=== PATIENT | female | born 1945 | race Caucasian/White ===

== ENCOUNTER 2022-12-07 17:52 | Emergency (ER) | payer MEDICARE, SELFPAY ==
[2022-12-07 18:34] VITALS: BP 170/75; PULSE 82; RESP 14; TEMP 36.8; O2SAT 99; BMI 29.0
[2022-12-07] MEDS: TET,DIPH,PERTUSS(ACELL),VAC/PF 0.5 ML SYRINGE IM (21:16)
--- NOTE | 2022-12-07 21:43 | ED.HEATRA ---
HPI - Head Injury General Chief complaint: Head Injury Stated complaint: Head lac after fall, R knee pain Time Seen by Provider: 12/07/22 21:42 Source: patient Mode of arrival: Ambulatory History of Present Illness HPI Narrative: Patient is a 77-year-old female who is here evaluation of injuries that she sustained after falling at home. She stated that she tripped over the cord of the vacuum immersion metalcleaner and hit her head on the corner of a piece of furniture. She did sustain a laceration to the eyebrow right above the right eye. She also bruised her right knee. She did not lose consciousness. Not on anticoagulation. No other injuries from the event. She is no neck pain. Related Data Allergies Allergy/AdvReac Type Severity Reaction Status Date / Time nitrofurantoin Allergy Verified 12/07/22 18:39 [From Macrobid] Review of Systems Eyes Eyes: Reports system reviewed and no additional complaints, except as documented ENT Ears, Nose, Mouth, and Throat: Reports system reviewed and no additional complaints, except as documented Integumentary/Breasts Skin/Breast: Reports system reviewed and no additional complaints, except as documented Neurologic Neurologic: Reports system reviewed and no additional complaints, except as documented Hematologic/Lymphatic On Anticoagulants: No Patient History Social History Smoking Status: Never smoker Smoking Status: Never smoker alcohol intake frequency: 0-2 drinks per day Substance Use Type: does not use Exam Initial Vital Signs Initial Vital Signs: Vital Signs Temperature 98.2 F 12/07/22 18:34 Pulse Rate 82 12/07/22 18:34 Respiratory Rate 14 12/07/22 18:34 Blood Pressure 170/75 H 12/07/22 18:34 Pulse Oximetry 99 12/07/22 18:34 Oxygen Delivery Method Room Air 12/07/22 18:34 Const General: cooperative and comfortable HENIN Head: laceration Back/Spine/Pelvis Cervical Spine: No cervical spinal tenderness Skin Other: 3 cm laceration to the eyebrow above the right eye. Patient also has bruising to the right knee Neuro General: patient alert, patient awake and moves all extremities Extrem Other: Bruising to the right knee but has full range motion and is ambulatory. Procedures Laceration Repair Laceration 1: Site: face (Above right eyebrow) Side (If applicable): right Size (cm): 3 Description: linear Depth: simple, single layer Local Anesthetic: lidocaine 1% and with epi Amount of anesthesia used (mL): 3 Pre-repair: wound explored and deep structures intact Skin layer closed with: nylon Skin layer suture size: 4-0 Number of sutures: 8 Technique: simple, interrupted Scores GCS [place] coma scale eye opening: Spontaneous [place] coma scale verbal response: Orientated [place] coma scale motor response: Obey commands [place] coma scale total score: 15 Nexus Score for C-Spine Focal Neurologic deficit present: No Midline spinal tenderness present: No Altered level of conciousness present: No Intoxication present: No Distracting Injury Present: No Nexus Criteria for C-spine: 0 Course Orders Ordered: Discontinued Medications Bacitracin (Bacitracin Oint 0.9 Gm Pckt) 1 applic TOP NOW ONE Stop: 12/07/22 22:13 Last Admin: 12/07/22 22:40 Dose: 1 applic Documented By: JODI Diphtheria/Tetanus/Acell Pertussis (Tet,Diph,Pertuss(Acell),Vac/Pf 0.5 Ml Syringe) 0.5 ml IM .ONCE ONE Stop: 12/07/22 18:39 Last Admin: 12/07/22 21:16 Dose: 0.5 ml Documented By: JODI Vital Signs Vital signs: Vital Signs - 8 hr 12/07/22 22:46 Temperature 98 F Pulse Rate 66 Respiratory Rate 16 Blood Pressure 134/78 Pulse Oximetry 98 Oxygen Delivery Method Room Air MDM - Head Injury MDM Narrative Medical decision making narrative: Laceration above right eye was closed as described above. Patient does have a contusion to her right knee but has full range of motion in his ambulatory. No indication for x-rays. Cervical spine is cleared by nexus criteria. No other injuries during the event. This was a mechanical fall. She was given care instructions and return precautions. She expressed understanding and agreement. Discharge Plan Departure Patient Disposition: Home Clinical Impression: Laceration Instructions: DI for Laceration Repair -- Simple Activity Restrictions/Additional Instructions: The stitches that were placed today are not absorbable. They do need to come out in the next 7-10 days. You can go to either the walk-in clinic or your primary doctor for this. You can put topical antibiotic ointment over the area. You can shower like normal. I would not be surprised if you develop a black eye over the next day. Return to the emergency department for worsening symptoms. Stand Alone Forms: Patient Portal/API
[2022-12-07] MEDS: BACITRACIN OINT 0.9 GM PCKT 1 APPLIC TOP (22:40)
[2022-12-07 22:46] VITALS: BP 134/78; PULSE 66; RESP 16; TEMP 36.6; O2SAT 98
== END 2022-12-07 22:47 | disposition home or self-care (01) ==
PROVIDERS: Emergency Provider Emergency Medicine
DX: S01.111A Laceration without foreign body of right eyelid and periocular area, initial encounter (principal); W01.190A Fall on same level from slipping, tripping and stumbling with subsequent striking against furniture, initial encounter; Z23 Encounter for immunization
CPT/HCPCS: 12013; 90471; 99283; 90715

== ENCOUNTER → 2023-02-04 10:30 | Outpatient (CLI) | payer MEDICARE, SELFPAY ==
[2023-02-04 12:06] LABS: Add Manual Diff / Slide Review NO; Basophils Absolute Auto 100 /uL (0-100); Eosinophils Absolute Auto 100 /uL (0-450); Eosinophils Percent Auto 1.7 % (2-4); Hematocrit 35.5 % (36-46); Hemoglobin 12.2 g/dL (12.0-16.0); Lymphocytes Absolute Auto 1000 /uL (1100-4500); Lymphocytes Percent Auto 17.1 % (25-40); Mean Corpuscular HGB Conc 34.4 % (30-36); Mean Corpuscular Hemoglobin 33.7 PG (26-34); Monocytes Absolute Auto 400 /uL (0-900); Monocytes Percent Auto 6.7 % (3-14); Neutrophils Absolute Auto 4200 /uL (1500-7000); Neutrophils Percent Auto 73.5 % (50-75); Platelet Count 213 X10^3/uL (150-400); Red Blood Cell Count 3.62 X10^6/uL (4.0-5.2); Red Cell Distribution Width 12.3 % (11.6-14.8); White Blood Cell Count 5.7 X10^3/uL (4.5-11.0)
[2023-02-04 12:29] LABS: Alanine Aminotransferase 27 IU/L (<35); Albumin 4.4 g/dL (3.5-5.0); Albumin Globulin Ratio 1.6 (1.0-2.8); Alkaline Phosphatase 72 U/L (38-126); Aspartate Aminotransferase 44 IU/L (14-36); BUN Creatinine Ratio 14.5 (6-22); Blood Urea Nitrogen 10 mg/dL (7-17); Calcium 9.3 mg/dL (8.4-10.2); Carbon Dioxide 23 mmol/L (22-32); Chloride 96 mmol/L (98-107); Cholesterol 220 mg/dL (140-199); Estimated Glomerular Filt Rate > 60 mL/min (>60); Globulin 2.7 g/dL (1.7-4.1); Glucose 70 mg/dL (80-110); HEMOLYSIS < 15 (0-50); Potassium 4.7 mmol/L (3.4-5.1); Sodium 131 mmol/L (137-145); Total Protein 7.1 g/dL (6.3-8.2); Triglycerides 82 mg/dL (35-150)
[2023-02-04 12:55] LABS: HDL Cholesterol 144 mg/dL (40-60); LDL Cholesterol Calculated 60 mg/dL (<100)
[2023-02-05 06:41] LABS: Labcorp Hemoglobin (Hb) A1c 4.7 % (4.8-5.6)
== END ==
PROVIDERS: PCP Family Medicine; Referring Provider Family Medicine; Visit Provider Family Medicine
DX: I10 Essential (primary) hypertension; F84.0 Autistic disorder; G62.9 Polyneuropathy, unspecified; R00.2 Palpitations; R26.81 Unsteadiness on feet; R62.50 Unspecified lack of expected normal physiological development in childhood
CPT/HCPCS: 36415; 80053; 80061; 83036; 84443; 85025

== ENCOUNTER → 2023-02-24 09:44 | Outpatient (CLI) | payer MEDICARE, SELFPAY | PROVIDERS: PCP Family Medicine; Referring Provider Family Medicine; Visit Provider Family Medicine | DX: R00.2 Palpitations (principal); G62.9 Polyneuropathy, unspecified; I10 Essential (primary) hypertension; R62.50 Unspecified lack of expected normal physiological development in childhood; F84.0 Autistic disorder; R26.81 Unsteadiness on feet | CPT/HCPCS: 93246 ==

== ENCOUNTER 2023-04-22 11:30 | Outpatient (RCR) | payer MEDICARE, SELFPAY ==
--- NOTE | 2023-04-15 14:25 | PT.OIE ---
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 Eczema (~2019) Gait instability Gout (~2017) Measles (~1951) Mumps (~1955) Palpitations Peripheral neuropathy Psoriasis (~2019) Past Surgical History (Last Updated 03/03/23 @ 18:37 by Juliana Sandoval) Anesthesia History of section (~07/1987) [place] teeth removed (~01/1977) Visit Care Team Role Provider Type Cecille Luong DO Attending Provider Physician Family Provider Primary Care Provider Referring Provider Specialty: Family Practice Address: [address] [place] [address], [facility] Email: [email or web address] Physical Therapy Initial Evaluation PT-OP-A Visit Information Start: 04/15/23 14:10 Freq: Status: Active Protocol: Document 04/15/23 14:11 ED (Rec: 04/15/23 14:24 ED [id number]) Out-Patient Physical Therapy Visit Information Visit Information Visit Type Initial Evaluation Visit Note 08/24 Visit Start Time 11:30 Visit Stop Time 12:15 Total Visit Minutes 45 Visit Number 1 Evaluation Information Evaluation Date 04/15/23 Precautions Precautions fall risk PT-OP-B Current Condition Start: 04/15/23 14:10 Freq: Status: Active Protocol: Document 04/15/23 14:11 ED (Rec: 04/15/23 14:24 ED [id number]) Current Condition History of Current Condition Onset Date last 1 year Current Complaints balance, deconditioning History of Current Condition Pt states that since her in May of 2022 that she has noticed increased worsening of her balance and strength. Pt has had 3 falls in past year with 1 resulting in a trip to the ER. Pt uses a SPC but also has a 4WW at home but she rarely uses that. She states that stairs are very difficult for her. She lives with her daughter now. She does not exercise but she is physically active doing laundry and dishes. Treatment Goals Patient/Caregiver Goals Be able to walk c/o a SPC PT-OP-C Subjective Start: 04/15/23 14:10 Freq: Status: Active Protocol: Document 04/15/23 14:11 ED (Rec: 04/15/23 14:24 ED [id number]) Patient Questionnaires ABC- Activity Specific Balance Confidence Scale ABC Score 620 / 1600 = 38.8 % ABC Functional Impairment 20 to <40% Impaired (Score 61- 80) PT-OP-E Functional Tests Start: 04/15/23 14:10 Freq: Status: Active Protocol: Document 04/15/23 14:11 ED (Rec: 04/15/23 14:24 ED [id number]) Functional Tests Five Times Sit to Stand Test Score 27 seconds Comments norm is 12.6 seconds Timed Up and Go (TUG) Score 15.5 seconds Comments used SPC; norm is 9.2 seconds; score >14 = fall risk TUG Impairment Rating 40 to <60% Impaired (Score 14- 15) Other 1 Name of Test SPPB Score 7/12 Comment Score <10 indicates risk of mobility disability; mean score of fallers=8.2 PT-OP-T Assessment and Plan Start: 04/15/23 14:10 Freq: Status: Active Protocol: Document 04/15/23 14:11 ED (Rec: 04/15/23 14:24 ED [id number]) Physical Therapy Assessment Rehab Potential Rehabilitation Potential Good Evaluation Complexity Number of Personal Factors/Comorbidities 1-2 Number of Body Systems Impaired 1-2 Impairments Impairments Activity Tolerance,Balance, Functional Activities, Functional Mobility,Gait, Strength,Transfers Goals Four Impairment stairs Short Term Goal (STG) Pt will be able to negotiate steps c/ handrails and step through gait pattern. STG Duration 4 weeks Unit Control Worker Goal (LTG) Pt will be able to negotaite steps c/o handrails and step through gait pattern. LTG Duration 8 weeks Three Impairment TUG Short Term Goal (STG) Pt will improve TUG timed score by 3 seconds to a score <12 seconds using SPC> STG Duration 3 weeks Detention Goal (LTG) Pt will improve TUG timed score by 5 seconds to a score <8 seconds using SPC> LTG Duration 8 weeks Two Impairment 5x sit<>stand Short Term Goal (STG) Pt will improve 5x sit<>stand by >2 seconds to a score <25 seconds. STG Duration 3 weeks Detention Goal (LTG) Pt will improve 5x sit<>stand by >2 seconds to a score <23 seconds. LTG Duration 6 weeks One Impairment HEP Short Term Goal (STG) Pt will report performing HEP >4 days/week. STG Duration 3 weeks Unit Control Worker Goal (LTG) Pt will report performing HEP >4 days/week. LTG Duration 8 weeks Assessment Summary Assessment Pt reported to PT c/ complaints of deconditioning, decreased balance, and decreased strength. Pt was below average for her age and sex matched peers in several tests of balance and strength including: TUG, 5x sit<>stand, and Short Physical Performance Battery. Scores are seen above. Pt provided initial HEP of : repeated sit< >stands and short, frequent walks at home using SPC or 4WW . Pt and PT spoke at length regarding PT POC and that in order for noticeable improvements to take place that she needs to be consistent with her HEP for several weeks to months. Physical Therapy Plan Frequency and Duration Frequency of Treatment 2x/Week Duration of treatment (weeks) 10 Plan of Care Start Date 04/15/23 Plan of Care End Date 07/14/23 Therapeutic Interventions Therapeutic Interventions Balance Training,Gait Training ,Home Exercise Program,Joint Mobilizations,Manual Therapy, Neuromuscular Re-education, Patient/Caregiver Education, Self-Care/Home Management, Therapeutic Activities, Therapeutic Exercises Next Visit Focus/Plan Next Note Type Treatment Note Next Visit Plan NuStep, HEP review (sit<> stands, walking), more sit<> stands, LE strenthening and balance work
--- NOTE | 2023-04-15 14:25 | PT.OPPOC ---
Physical, Occupational & Speech Therapy At [facility] Current Diagnoses Unsteadiness on feet (04/15/23) Unspecified fall, subsequent encounter (04/15/23) Unspecified place in unspecified non-institutional (private) residence as the place of occurrence of the external cause (04/15/23) Visit Care Team Role Provider Type Cecille Luong DO Attending Provider Physician Family Provider Primary Care Provider Referring Provider Specialty: Family Practice Address: [address] [place] [address], [address], [facility] Email: [email or web address] Plan Of Care PT-OP-T Assessment and Plan Start: 04/15/23 14:10 Freq: Status: Active Protocol: Document 04/15/23 14:11 ED (Rec: 04/15/23 14:24 ED [id number]) Physical Therapy Assessment Rehab Potential Rehabilitation Potential Good Evaluation Complexity Number of Personal Factors/Comorbidities 1-2 Number of Body Systems Impaired 1-2 Impairments Impairments Activity Tolerance,Balance, Functional Activities, Functional Mobility,Gait, Strength,Transfers Goals Four Impairment stairs Short Term Goal (STG) Pt will be able to negotiate steps c/ handrails and step through gait pattern. STG Duration 4 weeks Prison Goal (LTG) Pt will be able to negotaite steps c/o handrails and step through gait pattern. LTG Duration 8 weeks Three Impairment TUG Short Term Goal (STG) Pt will improve TUG timed score by 3 seconds to a score <12 seconds using SPC> STG Duration 3 weeks Prison Goal (LTG) Pt will improve TUG timed score by 5 seconds to a score <8 seconds using SPC> LTG Duration 8 weeks Two Impairment 5x sit<>stand Short Term Goal (STG) Pt will improve 5x sit<>stand by >2 seconds to a score <25 seconds. STG Duration 3 weeks Manager Training Goal (LTG) Pt will improve 5x sit<>stand by >2 seconds to a score <23 seconds. LTG Duration 6 weeks One Impairment HEP Short Term Goal (STG) Pt will report performing HEP >4 days/week. STG Duration 3 weeks Prison Goal (LTG) Pt will report performing HEP >4 days/week. LTG Duration 8 weeks Assessment Summary Assessment Pt reported to PT c/ complaints of deconditioning, decreased balance, and decreased strength. Pt was below average for her age and sex matched peers in several tests of balance and strength including: TUG, 5x sit<>stand, and Short Physical Performance Battery. Scores are seen above. Pt provided initial HEP of : repeated sit< >stands and short, frequent walks at home using SPC or 4WW . Pt and PT spoke at length regarding PT POC and that in order for noticeable improvements to take place that she needs to be consistent with her HEP for several weeks to months. Physical Therapy Plan Frequency and Duration Frequency of Treatment 2x/Week Duration of treatment (weeks) 10 Plan of Care Start Date 04/15/23 Plan of Care End Date 07/14/23 Therapeutic Interventions Therapeutic Interventions Balance Training,Gait Training ,Home Exercise Program,Joint Mobilizations,Manual Therapy, Neuromuscular Re-education, Patient/Caregiver Education, Self-Care/Home Management, Therapeutic Activities, Therapeutic Exercises Next Visit Focus/Plan Next Note Type Treatment Note Next Visit Plan NuStep, HEP review (sit<> stands, walking), more sit<> stands, LE strenthening and balance work Plan of Care Dates Plan of Care Start Date 04/15/23 Plan of Care End Date 07/14/23 Electronically Signed by: Francisco Mcpherson, PT 04/15/23 1403 If you are in agreement with this Plan of Care, please return a signed and dated copy. I have reviewed this Plan of Care and certify that the skilled therapy services above are required to meet the patient?s needs. Physician Signature Date Printed Name and Credentials Clinical Instructor Signature Printed Name and Credentials
--- NOTE | 2023-04-22 12:02 | PT.OTN ---
Current Diagnoses Unsteadiness on feet (04/22/23) Unspecified fall, subsequent encounter (04/22/23) Unspecified place in unspecified non-institutional (private) residence as the place of occurrence of the external cause (04/22/23) Physical Therapy Treatment Note PT-OP-A Visit Information Start: 04/15/23 14:10 Freq: Status: Active Protocol: Document 04/22/23 11:58 ED (Rec: 04/22/23 12:01 ED [id number]) Out-Patient Physical Therapy Visit Information Visit Information Visit Type Treatment Note Visit Note 09/24 Visit Start Time 11:30 Visit Stop Time 12:00 Total Visit Minutes 30 Visit Number 2 PT-OP-B Current Condition Start: 04/15/23 14:10 Freq: Status: Active Protocol: Document 04/15/23 14:11 ED (Rec: 04/15/23 14:24 ED [id number]) Current Condition History of Current Condition Onset Date last 1 year Current Complaints balance, deconditioning History of Current Condition Pt states that since her in May of 2022 that she has noticed increased worsening of her balance and strength. Pt has had 3 falls in past year with 1 resulting in a trip to the ER. Pt uses a SPC but also has a 4WW at home but she rarely uses that. She states that stairs are very difficult for her. She lives with her daughter now. She does not exercise but she is physically active doing laundry and dishes. Treatment Goals Patient/Caregiver Goals Be able to walk c/o a SPC PT-OP-C Subjective Start: 04/15/23 14:10 Freq: Status: Active Protocol: Document 04/22/23 11:58 ED (Rec: 04/22/23 12:01 ED [id number]) OP-PT Subjective Patient Comments Patient Comments Pt states she did her HEP most of the time but on Tuesday she irritated her back so she stopped doing the exercises as much after that. PT-OP-E Functional Tests Start: 04/15/23 14:10 Freq: Status: Active Protocol: Document 04/22/23 11:58 ED (Rec: 04/22/23 12:01 ED [id number]) Functional Tests 6 Minute Walk Test Distance 856 feet Device Used SPC Comments 04/22 (age and sex matched norm = 1545) PT-OP-T Assessment and Plan Start: 04/15/23 14:10 Freq: Status: Active Protocol: Document 04/22/23 11:58 ED (Rec: 04/22/23 12:01 ED [id number]) Physical Therapy Assessment Goals Four Impairment stairs Short Term Goal (STG) Pt will be able to negotiate steps c/ handrails and step through gait pattern. STG Duration 4 weeks Belt Knife Feeder Goal (LTG) Pt will be able to negotaite steps c/o handrails and step through gait pattern. LTG Duration 8 weeks Three Impairment TUG Short Term Goal (STG) Pt will improve TUG timed score by 3 seconds to a score <12 seconds using SPC> STG Duration 3 weeks Usp Goal (LTG) Pt will improve TUG timed score by 5 seconds to a score <8 seconds using SPC> LTG Duration 8 weeks Two Impairment 5x sit<>stand Short Term Goal (STG) Pt will improve 5x sit<>stand by >2 seconds to a score <25 seconds. STG Duration 3 weeks Belt Knife Feeder Goal (LTG) Pt will improve 5x sit<>stand by >2 seconds to a score <23 seconds. LTG Duration 6 weeks One Impairment HEP Short Term Goal (STG) Pt will report performing HEP >4 days/week. STG Duration 3 weeks Usp Goal (LTG) Pt will report performing HEP >4 days/week. LTG Duration 8 weeks Assessment Summary Assessment PT elected to have shorter session as patient has not had any physical exercise in years and PT wished to avoid excessive muscle soreness in following days. Pt performed NuStep for 10 minutes in addition to the 6 minute walk test. Physical Therapy Plan Next Visit Focus/Plan Next Note Type Treatment Note Next Visit Plan NuStep, HEP review (sit<> stands, walking), more sit<> stands, LE strenthening and balance work
--- NOTE | 2023-05-17 07:40 | PT.OPDS ---
Current Diagnoses Unsteadiness on feet (04/22/23) Unspecified fall, subsequent encounter (04/22/23) Unspecified place in unspecified non-institutional (private) residence as the place of occurrence of the external cause (04/22/23) Visit Care Team Role Provider Type Cecille Luong DO Attending Provider Physician Family Provider Primary Care Provider Referring Provider Specialty: [facility] Practice Address: [address] [place] [address], [address], [facility] Email: [email or web address] Visit Number Visit Number 2 Discharge Summary PT-OP-B Current Condition Start: 04/15/23 14:10 Freq: Status: Active Protocol: Document 04/15/23 14:11 ED (Rec: 04/15/23 14:24 ED [id number]) Current Condition History of Current Condition Onset Date last 1 year Current Complaints balance, deconditioning History of Current Condition Pt states that since her in May of 2022 that she has noticed increased worsening of her balance and strength. Pt has had 3 falls in past year with 1 resulting in a trip to the ER. Pt uses a SPC but also has a 4WW at home but she rarely uses that. She states that stairs are very difficult for her. She lives with her daughter now. She does not exercise but she is physically active doing laundry and dishes. Treatment Goals Patient/Caregiver Goals Be able to walk c/o a SPC PT-OP-C Subjective Start: 04/15/23 14:10 Freq: Status: Active Protocol: Document 04/22/23 11:58 ED (Rec: 04/22/23 12:01 ED [id number]) OP-PT Subjective Patient Comments Patient Comments Pt states she did her HEP most of the time but on Tuesday she irritated her back so she stopped doing the exercises as much after that. PT-OP-E Functional Tests Start: 04/15/23 14:10 Freq: Status: Active Protocol: Document 04/22/23 11:58 ED (Rec: 04/22/23 12:01 ED [id number]) Functional Tests 6 Minute Walk Test Distance 856 feet Device Used SPC Comments 04/22 (age and sex matched norm = [age]) PT-OP-T Assessment and Plan Start: 04/15/23 14:10 Freq: Status: Active Protocol: Document 05/17/23 07:39 ED (Rec: 05/17/23 07:40 ED [id number]) Physical Therapy Assessment Goals Four Impairment stairs Short Term Goal (STG) Pt will be able to negotiate steps c/ handrails and step through gait pattern. STG Duration 4 weeks Eyelet Maker Goal (LTG) Pt will be able to negotaite steps c/o handrails and step through gait pattern. LTG Duration 8 weeks Three Impairment TUG Short Term Goal (STG) Pt will improve TUG timed score by 3 seconds to a score <12 seconds using SPC> STG Duration 3 weeks Assisted Goal (LTG) Pt will improve TUG timed score by 5 seconds to a score <8 seconds using SPC> LTG Duration 8 weeks Two Impairment 5x sit<>stand Short Term Goal (STG) Pt will improve 5x sit<>stand by >2 seconds to a score <25 seconds. STG Duration 3 weeks Eyelet Maker Goal (LTG) Pt will improve 5x sit<>stand by >2 seconds to a score <23 seconds. LTG Duration 6 weeks One Impairment HEP Short Term Goal (STG) Pt will report performing HEP >4 days/week. STG Duration 3 weeks Assisted Goal (LTG) Pt will report performing HEP >4 days/week. LTG Duration 8 weeks Assessment Summary Assessment Pt will be discharged from PT services at this time d/t lack of attendence. Pt has cancelled 4 appointments and was last seen on 04/22/23. Physical Therapy Plan Discharge Physical Therapy Discharge Reasons No Longer Attending PT
== END 2023-05-18 16:51 | disposition home or self-care (01) ==
LOC: PHYS 11:30
PROVIDERS: Family Provider Family Medicine; PCP Family Medicine; Referring Provider Family Medicine; Visit Provider Family Medicine
DX: R26.81 Unsteadiness on feet (principal); Y92.009 Unspecified place in unspecified non-institutional (private) residence as the place of occurrence of the external cause; W19.XXXD Unspecified fall, subsequent encounter
CPT/HCPCS: 97110; 97161

== ENCOUNTER 2023-05-16 10:50 | Emergency (ER) | payer MEDICARE, SELFPAY ==
[2023-05-16] VITALS (12 sets, daily range): BP systolic 126–175; BP diastolic 59–109; PULSE 79–92; RESP 15–25; TEMP 37.2; O2SAT 96–100; BMI 34.3
--- NOTE | 2023-05-16 10:55 | DI.RAD.S_ITS ---
PROCEDURE: XR CHEST 1V INDICATIONS: Shortness of breath TECHNIQUE: One view of the chest was acquired. COMPARISON: None. FINDINGS: Surgical changes and devices: None. Lungs and pleura: Lungs are clear. No pleural effusions or pneumothorax. Mediastinum: Mediastinal contours appear normal. Atherosclerotic vascular calcifications. Heart size is normal. Bones and chest wall: No suspicious bony lesions. Degenerative changes of the spine. Overlying soft tissues appear unremarkable. IMPRESSION: No acute cardiopulmonary process. Dictated by: Darvin Alarcon M.D. on 05/16/2023 at 11:38 Approved by: Darvin Alarcon M.D. on 05/16/2023 at 11:39
--- NOTE | 2023-05-16 10:59 | ED.GENADULT ---
HPI - General Adult General Chief complaint: Shortness of Breath/Dyspnea Stated complaint: SOB, fatigue, cough, Freq urination Time Seen by Provider: 05/16/23 10:55 Source: patient and family Mode of arrival: Ambulatory Limitations: no limitations History of Present Illness HPI narrative: Patient is a 77-year-old female who is here for evaluation of sever days of shortness of breath and fatigue and cough and urinating frequently. No chest pain. No abdominal pain. No specific fevers. No lower extremity swelling. Family also states there has been some potential memory changes as well. Patient denies any sinus congestion or sore throat. No skin rashes. Related Data Previous Rx's Medication Instructions Recorded Disabled parking permit #1 ea 02/04/23 losartan 25 mg tablet 25 mg PO DAILY blood pressure #90 03/16/23 tabs losartan 50 mg tablet 50 mg PO DAILY blood pressure #90 04/27/23 tabs cephalexin 500 mg capsule 500 mg PO BID 7 days #14 caps 05/16/23 Allergies Allergy/AdvReac Type Severity Reaction Status Date / Time nitrofurantoin Allergy Verified 05/16/23 11:11 [From Macrobid] Sulfa (Sulfonamide Allergy Verified 05/16/23 11:11 Antibiotics) lobster AdvReac Unknown Uncoded 04/27/23 14:11 Review of Systems Review of Systems ROS Unobtainable: All systems reviewed & are unremarkable except as noted in HPI and below Patient History Medical History Benign essential HTN Chicken pox (~1954) Developmental delay with autism spectrum disorder and gait instability Eczema (~2019) Gait instability Gout (~2017) Measles (~1951) Mumps (~1955) Palpitations Peripheral neuropathy Psoriasis (~2019) Surgical History (Updated 03/03/23 @ 18:37 by Juliana Sandoval) Anesthesia History of section (~07/1987) [place] teeth removed (~01/1977) Family History (Updated 03/03/23 @ 18:40 by Juliana Sandoval) Mother History of kidney disease Sister Overweight Grandmother History of heart disease Social History Smoking Status: Former smoker Smoking Status: Former smoker alcohol intake frequency: 0-2 drinks per day Substance Use Type: does not use Exam Initial Vital Signs Initial Vital Signs: Vital Signs Pulse Rate 92 H 05/16/23 11:01 Blood Pressure 157/71 H 05/16/23 11:01 Pulse Oximetry 98 05/16/23 11:01 Oxygen Delivery Method Room Air 05/16/23 11:01 Const General: cooperative, comfortable and No ill appearing HENMT Head: normal to inspection and normocephalic Mouth: oral mucosae normal Resp Effort & Inspection: normal respiratory effort Auscultation: clear to auscultation bilaterally Cardio Rate: regular rate Rhythm: regular rhythm GI Inspection: normal to inspection and non-distended Palpation: soft and No tender Skin General: no rashes or lesions noted Neuro General: patient alert, patient awake and moves all extremities Speech: speech normal Extrem General: No edema Course Orders Ordered: ED Orders 05/16/23 10:55 XR chest 1V Stat 05/16/23 10:59 EKG-12 Lead Stat 05/16/23 11:09 Respiratory Panel (Film Array) Stat 05/16/23 11:35 Complete Blood Count AUTO DIFF Stat Comprehensive Metabolic Panel Stat Lipase Stat NT-proBNP (BNP-Adult 18+) Stat Troponin & CK Cardiac Panel Stat 05/16/23 13:33 EKG-12 Lead Stat 05/16/23 13:34 Ictotest Urine Stat Urinalysis and Microscopic Stat Urine Culture Stat 05/16/23 13:54 Trop I [Troponin I] Stat Discontinued Medications Sodium Chloride (Normal Saline 0.9%) 1,000 mls @ 1,000 mls/hr IV BOLUS ONE Stop: 05/16/23 14:36 Last Admin: 05/16/23 13:53 Dose: 1,000 mls/hr Documented By: SB Vital Signs Vital signs: Vital Signs - 8 hr 05/16/23 11:05 05/16/23 11:01 05/16/23 11:01 Temperature 98.9 F Pulse Rate 92 H 92 H Respiratory Rate 18 Blood Pressure 173/74 H 157/71 H Pulse Oximetry 98 98 Oxygen Delivery Method Room Air Room Air 05/16/23 11:30 05/16/23 11:30 05/16/23 12:00 Temperature Pulse Rate 90 Respiratory Rate 20 Blood Pressure 152/69 H 126/59 L Pulse Oximetry 98 Oxygen Delivery Method Room Air 05/16/23 12:00 05/16/23 12:30 05/16/23 12:30 Temperature Pulse Rate 83 79 Respiratory Rate 15 18 Blood Pressure 140/62 Pulse Oximetry 97 96 Oxygen Delivery Method Room Air 05/16/23 13:00 05/16/23 13:00 05/16/23 13:49 Temperature Pulse Rate 81 82 Respiratory Rate 23 Blood Pressure 147/66 H Pulse Oximetry 99 99 Oxygen Delivery Method Room Air 05/16/23 13:50 05/16/23 13:50 05/16/23 14:00 Temperature Pulse Rate 82 Respiratory Rate 21 Blood Pressure 146/109 H 149/70 H Pulse Oximetry 100 Oxygen Delivery Method Room Air 05/16/23 14:00 05/16/23 14:30 05/16/23 14:31 Temperature Pulse Rate 80 85 84 Respiratory Rate 17 21 25 H Blood Pressure Pulse Oximetry 99 100 100 Oxygen Delivery Method Room Air Room Air 05/16/23 14:31 Temperature Pulse Rate Respiratory Rate Blood Pressure 175/79 H Pulse Oximetry Oxygen Delivery Method Medical Decision Making Medical Records Medical records reviewed: Yes I reviewed the patient's medical records. Lab Data Lab results reviewed: Yes I reviewed the patient's lab results. 05/16/23 11:35 05/16/23 11:35 Labs: Lab Results 05/16/23 05/16/23 05/16/23 Range/Units 11:09 11:35 11:35 WBC 14.0 H (4.5-11.0) X10^3/uL RBC 3.42 L (4.0-5.2) X10^6/uL Hgb 11.3 L (12.0-16.0) g/dL Hct 32.5 L (36-46) % MCV 95.1 (80-100) fL MCH 32.9 (26-34) PG MCHC 34.6 (30-36) % RDW 13.5 (11.6-14.8) % Plt Count 173 (150-400) X10^3/uL Neut % (Auto) Not Reportable Lymph % (Auto) Not Reportable [place] % (Auto) Not Reportable Eos % (Auto) Not Reportable Baso % (Auto) Not Reportable Lymph # (Auto) Not Reportable [place] # (Auto) Not Reportable Baso # (Auto) Not Reportable Total Counted 100 Seg Neutrophils % 68.0 (38-70) % Band Neutrophils % 9.0 H (3-7) % Lymphocytes % (Manual) 7.0 L (25-45) % Atypical Lymphs % 1.0 H ( - 0) % Monocytes % (Manual) 13.0 H (2-11) % Eosinophils % (Manual) 1.0 L (2-4) % Basophils % (Manual) 1.0 (0-1) % Neutrophils # (Manual) 85003 H (1616-8172) /uL RBC Morphology See below Anisocytosis 1+ H Sodium 127 L (137-145) mmol/L Potassium 4.4 (3.4-5.1) mmol/L Chloride 97 L (98-107) mmol/L Carbon Dioxide 20 L (22-32) mmol/L BUN 61 H (7-17) mg/dL Creatinine 1.34 H (0.52-1.04) mg/dL Estimated GFR 41 L (>60) mL/min BUN/Creatinine Ratio 45.5 H (6-22) Glucose 131 H (80-110) mg/dL Calcium 9.3 (8.4-10.2) mg/dL Total Bilirubin 1.5 H (0.2-1.3) mg/dL AST 47 H (14-36) IU/L ALT 29 (<35) IU/L Alkaline Phosphatase 71 (38-126) U/L Total Creatine Kinase 28 L (30-135) U/L Troponin I 0.017 (0.01-0.034) ng/mL NT-Pro-B Natriuret Pep 1300 H (<450) pg/mL Total Protein 6.7 (6.3-8.2) g/dL Albumin 3.5 (3.5-5.0) g/dL Globulin 3.2 (1.7-4.1) g/dL Albumin/Globulin Ratio 1.1 (1.0-2.8) Lipase 102 (23-300) U/L Urine Color Urine Appearance Urine pH (4.5-8.0) Ur Specific [place] (1.000-1.035) Urine Protein (Negative) Urine Glucose (UA) (Negative) g/dL Urine Ketones (NEGATIVE) Urine Occult Blood (Negative) Urine Nitrate (Negative) Urine Bilirubin (NEGATIVE) Ur Bilirubin Confirm (Negative) Urine Urobilinogen (0.2) E.U./dL Ur Leukocyte Esterase (NEGATIVE) Urine RBC (0-5/HPF) Urine WBC (0-5/HPF) Ur Squamous Epith Cells (0-5/HPF) Urine Bacteria (None) Ur Culture Indicated? Chlamy pneumoniae PCR Not detected (Not Detect) Adenovirus (PCR) Not detected (Not Detect) B. pertussis DNA (PCR) Not detected (Not Detecte) B.parapertussis DNA PCR Not detected (Not Detecte) Coronavirus OC43 (PCR) Not detected (Not Detect) Coronavirus HKU1 (PCR) Not detected (Not Detect) Coronavirus 229E (PCR) Not detected (Not Detect) SARS-CoV-2 (PCR) Not detected (Not Detecte) Coronavirus NL63 (PCR) Not detected (Not Detect) Human Metapneumovir PCR Not detected (Not Detect) Influenza Type A (PCR) Not detected (Not Detect) Influenza Type B (PCR) Not detected (Not Detect) M. pneumoniae (PCR) Not detected (Not Detect) Parainfluenza 1 (PCR) Not detected (Not Detect) Parainfluenza 2 (PCR) Not detected (Not Detect) Parainfluenza 3 (PCR) Not detected (Not Detect) Parainfluenza 4 (PCR) Not detected (Not Detect) RSV (PCR) Not detected (Not Detect) Entero/Rhino (PCR) Not detected (Not Detect) 05/16/23 05/16/23 Range/Units 13:34 13:54 WBC (4.5-11.0) X10^3/uL RBC (4.0-5.2) X10^6/uL Hgb (12.0-16.0) g/dL Hct (36-46) % MCV (80-100) fL MCH (26-34) PG MCHC (30-36) % RDW (11.6-14.8) % Plt Count (150-400) X10^3/uL Neut % (Auto) Lymph % (Auto) [place] % (Auto) Eos % (Auto) Baso % (Auto) Lymph # (Auto) [place] # (Auto) Baso # (Auto) Total Counted Seg Neutrophils % (38-70) % Band Neutrophils % (3-7) % Lymphocytes % (Manual) (25-45) % Atypical Lymphs % ( - 0) % Monocytes % (Manual) (2-11) % Eosinophils % (Manual) (2-4) % Basophils % (Manual) (0-1) % Neutrophils # (Manual) (0803-3365) /uL RBC Morphology Anisocytosis Sodium (137-145) mmol/L Potassium (3.4-5.1) mmol/L Chloride (98-107) mmol/L Carbon Dioxide (22-32) mmol/L BUN (7-17) mg/dL Creatinine (0.52-1.04) mg/dL Estimated GFR (>60) mL/min BUN/Creatinine Ratio (6-22) Glucose (80-110) mg/dL Calcium (8.4-10.2) mg/dL Total Bilirubin (0.2-1.3) mg/dL AST (14-36) IU/L ALT (<35) IU/L Alkaline Phosphatase (38-126) U/L Total Creatine Kinase (30-135) U/L Troponin I 0.014 (0.01-0.034) ng/mL NT-Pro-B Natriuret Pep (<450) pg/mL Total Protein (6.3-8.2) g/dL Albumin (3.5-5.0) g/dL Globulin (1.7-4.1) g/dL Albumin/Globulin Ratio (1.0-2.8) Lipase (23-300) U/L Urine Color Yellow Urine Appearance Clear Urine pH 5.0 (4.5-8.0) Ur Specific [place] 1.010 (1.000-1.035) Urine Protein 1+ H (Negative) Urine Glucose (UA) Negative (Negative) g/dL Urine Ketones Trace H (NEGATIVE) Urine Occult Blood 1+ H (Negative) Urine Nitrate Negative (Negative) Urine Bilirubin 1+ H (NEGATIVE) Ur Bilirubin Confirm Negative (Negative) Urine Urobilinogen 0.2 (0.2) E.U./dL Ur Leukocyte Esterase 3+ H (NEGATIVE) Urine RBC 1-5/hpf (0-5/HPF) Urine WBC 30-100/hpf H (0-5/HPF) Ur Squamous Epith Cells 1-5 /hpf (0-5/HPF) Urine Bacteria Many (>30) H (None) Ur Culture Indicated? Specimen cultured Chlamy pneumoniae PCR (Not Detect) Adenovirus (PCR) (Not Detect) B. pertussis DNA (PCR) (Not Detecte) B.parapertussis DNA PCR (Not Detecte) Coronavirus OC43 (PCR) (Not Detect) Coronavirus HKU1 (PCR) (Not Detect) Coronavirus 229E (PCR) (Not Detect) SARS-CoV-2 (PCR) (Not Detecte) Coronavirus NL63 (PCR) (Not Detect) Human Metapneumovir PCR (Not Detect) Influenza Type A (PCR) (Not Detect) Influenza Type B (PCR) (Not Detect) M. pneumoniae (PCR) (Not Detect) Parainfluenza 1 (PCR) (Not Detect) Parainfluenza 2 (PCR) (Not Detect) Parainfluenza 3 (PCR) (Not Detect) Parainfluenza 4 (PCR) (Not Detect) RSV (PCR) (Not Detect) Entero/Rhino (PCR) (Not Detect) Imaging Data Chest x-ray: Radiologist's Impression: PROCEDURE:? XR CHEST 1V ? INDICATIONS:? Shortness of breath ? TECHNIQUE:? One view of the chest was acquired.? ? COMPARISON:? None. ? FINDINGS:? ? Surgical changes and devices:? None.? ? Lungs and pleura:? Lungs are clear.? No pleural effusions or pneumothorax.? ? Mediastinum:? Mediastinal contours appear normal.? Atherosclerotic vascular calcifications.? Heart size is normal.? ? Bones and chest wall:? No suspicious bony lesions.? Degenerative changes of the spine.? Overlying soft tissues appear unremarkable.? ? ? IMPRESSION:? No acute cardiopulmonary process. ECG Data Attestation: I personally reviewed and interpreted this ECG as follows: Interpretation: Sinus rhythm Ventricular rate 86 Normal axis Normal QRS Normal QTC No ST T wave changes Repeat EKG Sinus rhythm Ventricular rate 83 Normal axis Normal QRS No ST T wave changes Unchanged from previous EKG MDM Narrative Medical decision making narrative: Patient does have leukocytosis. Her urinalysis today is consistent with a urinary tract infection. She does state that she is having urinary frequency. Urine culture was pending at the time of discharge. She does have a elevation in her creatinine. Low suspicion for pyelo based on her presentation. She is tolerating oral intake. No indication for radiologic studies. Low suspicion for ACS. Plan will be to start the patient on antibiotics. She has an appointment with her primary doctor in a couple weeks from now. Has no indication for admission to the hospital. She was given return precautions. Patient not clinically in heart failure. Discharge Plan Departure Patient Disposition: Home Clinical Impression: Fatigue, Urinary tract infection Instructions: DI for Urinary Tract Infection (UTI) Activity Restrictions/Additional Instructions: I do recommend that you continue to take your blood pressure medications as directed. Take the antibiotics as directed as well. There was a urine culture pending at the time of your discharge and we will contact you if we need to change any antibiotics. I do recommend that you contact your primary doctor for follow-up to have your kidney function checked once again. Return to the emergency department for new symptoms. Prescriptions: New cephalexin 500 mg capsule 500 mg PO BID 7 Days Qty: 14 0RF No Action losartan 25 mg tablet 25 mg PO DAILY Qty: 90 3RF losartan 50 mg tablet 50 mg PO DAILY Qty: 90 3RF (DME) Disabled parking permit See Rx Instructions .ROUTE .MEDSUPPLY Qty: 1 0RF Rx Instructions: I find this patient to be medically disabled and qualified for disabled parking as indicated, and signed, on the accompanying disabled parking application for individuals. Referrals: Cecille Luong DO [Primary Care Provider] - Stand Alone Forms: Patient Portal/API
--- NOTE | 2023-05-16 11:46 | PC.NURSE ---
Pt states no vomiting since last week, denies abd pain. Pt's breathing feels better laying down, nonlabored breathing. Pt's daughter and (caregiver) at bedside with her. Pt's does t-1year this week.
[2023-05-16 12:06] LABS: Alanine Aminotransferase 29 IU/L (<35); Albumin 3.5 g/dL (3.5-5.0); Albumin Globulin Ratio 1.1 (1.0-2.8); Alkaline Phosphatase 71 U/L (38-126); Aspartate Aminotransferase 47 IU/L (14-36); BUN Creatinine Ratio 45.5 (6-22); Bilirubin Total 1.5 mg/dL (0.2-1.3); Blood Urea Nitrogen 61 mg/dL (7-17); Calcium 9.3 mg/dL (8.4-10.2); Carbon Dioxide 20 mmol/L (22-32); Chloride 97 mmol/L (98-107); Creatine Kinase 28 U/L (30-135); Estimated Glomerular Filt Rate 41 mL/min (>60); Globulin 3.2 g/dL (1.7-4.1); Glucose 131 mg/dL (80-110); Lipase 102 U/L (23-300); Potassium 4.4 mmol/L (3.4-5.1); Sodium 127 mmol/L (137-145); Total Protein 6.7 g/dL (6.3-8.2)
[2023-05-16 12:06] LABS: Adenovirus Not Detected (Not Detect); B. parapertussis Not Detected (Not Detecte); Bordetella pertussis Not Detected (Not Detecte); Chlamydophila pneumoniae Not Detected (Not Detect); Coronavirus 229E Not Detected (Not Detect); Coronavirus HKU1 Not Detected (Not Detect); Coronavirus NL 63 Not Detected (Not Detect); Coronavirus OC43 Not Detected (Not Detect); Human Metapneumovirus Not Detected (Not Detect); Human Rhinovirus/Enterovirus Not Detected (Not Detect); Influenza A Not Detected (Not Detect); Influenza B Not Detected (Not Detect); Mycoplasma pneumoniae Not Detected (Not Detect); Parainfluenza Virus 1 Not Detected (Not Detect); Parainfluenza Virus 2 Not Detected (Not Detect); Parainfluenza Virus 3 Not Detected (Not Detect); Parainfluenza Virus 4 Not Detected (Not Detect); Respiratory Syncytial Virus Not Detected (Not Detect); SARS- CoV-2 Not Detected (Not Detecte)
[2023-05-16 12:07] LABS: HEMOLYSIS 141 (0-50)
[2023-05-16 12:13] LABS: Hematocrit 32.5 % (36-46); Hemoglobin 11.3 g/dL (12.0-16.0); Mean Corpuscular HGB Conc 34.6 % (30-36); Mean Corpuscular Hemoglobin 32.9 PG (26-34); Mean Corpuscular Volume 95.1 fL (80-100); Platelet Count 173 X10^3/uL (150-400); Red Blood Cell Count 3.42 X10^6/uL (4.0-5.2); Red Cell Distribution Width 13.5 % (11.6-14.8)
[2023-05-16 12:18] LABS: NT-proBNP (BNP-Adult 18+) 1300 pg/mL (<450); Troponin I 0.017 ng/mL (0.01-0.034)
[2023-05-16 12:20] LABS: Add Manual Diff / Slide Review YES
[2023-05-16 12:30] LABS: Neutrophils Absolute Manual 10780 /uL (3000-5900); Total Cells Counted 100
[2023-05-16 12:31] LABS: Anisocytosis 1+
[2023-05-16 13:43] LABS: Appearance Urine UA CLEAR; Bilirubin Urine UA 1+ (NEGATIVE); Color Urine UA YELLOW; Glucose Urine UA NEGATIVE (Negative); Ketones Urine UA TRACE (NEGATIVE); Leukocyte Esterase Urine UA 3+ (NEGATIVE); Nitrite Urine UA NEGATIVE (Negative); Occult Blood Urine UA 1+ (Negative); Protein Urine UA 1+ (Negative); Urobilinogen Urine UA 0.2 E.U./dL (0.2)
[2023-05-16 13:45] LABS: Ictotest Urine Negative (Negative)
[2023-05-16 13:47] LABS: Bacteria Urine Many (>30); Culture Indicated Urine Specimen Cultured; RBC Urine 1-5/HPF (0-5/HPF); Squamous Epithelial Cell Urine 1-5 /HPF (0-5/HPF); WBC Urine 30-100/HPF (0-5/HPF)
[2023-05-16] MEDS: SODIUM CHLORIDE 0.9% 1,000 ML 1000 ML IV (13:53)
[2023-05-16 14:20] LABS: Troponin I 0.014 ng/mL (0.01-0.034)
--- NOTE | 2023-05-16 14:35 | PC.NURSE ---
Provider Okayed patient taking her own RX of BP meds while in the ER.
== END 2023-05-16 15:18 | disposition home or self-care (01) ==
PROVIDERS: Emergency Provider Emergency Medicine; Family Provider Family Medicine; PCP Family Medicine
DX: N39.0 Urinary tract infection, site not specified (principal); R53.83 Other fatigue; R07.9 Chest pain, unspecified
CPT/HCPCS: 36415; 71045; 80053; 81001; 82550; 83690; 83880; 84484; 85007; 85025; 87077; 87086; 87186; 87633; 93005; 99284

== ENCOUNTER → 2023-05-27 09:12 | Outpatient (CLI) | payer MEDICARE, SELFPAY ==
[2023-05-27 11:01] LABS: Add Manual Diff / Slide Review NO; Basophils Absolute Auto 100 /uL (0-100); Basophils Percent Auto 0.9 % (0-2); Eosinophils Absolute Auto 0 /uL (0-450); Eosinophils Percent Auto 0.5 % (2-4); Hematocrit 28.9 % (36-46); Hemoglobin 10.1 g/dL (12.0-16.0); Lymphocytes Absolute Auto 1000 /uL (1100-4500); Lymphocytes Percent Auto 11.6 % (25-40); Mean Corpuscular HGB Conc 34.7 % (30-36); Mean Corpuscular Hemoglobin 32.7 PG (26-34); Mean Corpuscular Volume 94.2 fL (80-100); Monocytes Absolute Auto 600 /uL (0-900); Monocytes Percent Auto 6.8 % (3-14); Neutrophils Absolute Auto 7000 /uL (1500-7000); Neutrophils Percent Auto 80.2 % (50-75); Platelet Count 493 X10^3/uL (150-400); Red Blood Cell Count 3.07 X10^6/uL (4.0-5.2); Red Cell Distribution Width 12.3 % (11.6-14.8); White Blood Cell Count 8.8 X10^3/uL (4.5-11.0)
[2023-05-27 11:31] LABS: Alanine Aminotransferase 13 IU/L (<35); Albumin 3.6 g/dL (3.5-5.0); Alkaline Phosphatase 66 U/L (38-126); Aspartate Aminotransferase 18 IU/L (14-36); BUN Creatinine Ratio 14.4 (6-22); Blood Urea Nitrogen 15 mg/dL (7-17); Calcium 9.7 mg/dL (8.4-10.2); Carbon Dioxide 23 mmol/L (22-32); Chloride 99 mmol/L (98-107); Estimated Glomerular Filt Rate 56 mL/min (>60); Globulin 3.6 g/dL (1.7-4.1); Glucose 107 mg/dL (80-110); HEMOLYSIS < 15 (0-50); Potassium 4.4 mmol/L (3.4-5.1); Sodium 133 mmol/L (137-145); Total Protein 7.2 g/dL (6.3-8.2)
== END ==
PROVIDERS: Family Provider Family Medicine; PCP Family Medicine; Referring Provider Family Medicine; Visit Provider Family Medicine
DX: I10 Essential (primary) hypertension (principal); E87.1 Hypo-osmolality and hyponatremia; N28.9 Disorder of kidney and ureter, unspecified
CPT/HCPCS: 36415; 80053; 85025

== ENCOUNTER → 2024-01-25 12:00 | Outpatient (CLI) | payer MEDICARE, SELFPAY ==
--- NOTE | 2024-01-25 12:03 | DI.RAD.S_ITS ---
PROCEDURE: XR KNEE LT 3V INDICATIONS: left knee pain w/injury event TECHNIQUE: 3 views of the knee were acquired. COMPARISON: None. FINDINGS: Bones: No fractures or dislocations. No suspicious bony lesions. Moderate tricompartmental degenerative changes most pronounced in the medial femorotibial and the patellofemoral compartments. Soft tissues: Small joint effusion. No suspicious soft tissue calcifications. Calcifications noted over the medial and lateral menisci. IMPRESSION: No acute bony abnormality. Moderate tricompartmental left knee osteoarthrosis with small effusion. Dictated by: Edilson Fry M.D. on 01/26/2024 at 9:57 Approved by: Edilson Fry M.D. on 01/26/2024 at 9:58
== END ==
LOC: RAD 12:01
PROVIDERS: Family Provider Family Medicine; PCP Family Medicine; Referring Provider Nurse Practitioner Family; Visit Provider Nurse Practitioner Family
DX: M17.12 Unilateral primary osteoarthritis, left knee (principal); M25.562 Pain in left knee; M25.462 Effusion, left knee
CPT/HCPCS: 73562

== ENCOUNTER → 2024-03-14 09:50 | Outpatient (CLI) | payer MEDICARE, SELFPAY ==
[2024-03-14 10:30] LABS: Hemoglobin 12.4 g/dL (12.0-16.0); Mean Corpuscular HGB Conc 34.6 % (30-36); Mean Corpuscular Hemoglobin 33.3 PG (26-34); Mean Corpuscular Volume 96.2 fL (80-100); Platelet Count 207 X10^3/uL (150-400); Red Blood Cell Count 3.74 X10^6/uL (4.0-5.2); Red Cell Distribution Width 12.8 % (11.6-14.8); White Blood Cell Count 5.4 X10^3/uL (4.5-11.0)
[2024-03-14 10:58] LABS: BUN Creatinine Ratio 17.4 (6-22); Blood Urea Nitrogen 16 mg/dL (7-17); Calcium 9.5 mg/dL (8.4-10.2); Carbon Dioxide 18 mmol/L (22-32); Chloride 100 mmol/L (98-107); Estimated Glomerular Filt Rate > 60 mL/min (>60); Glucose 82 mg/dL (80-110); HEMOLYSIS 44 (0-50); Iron 150 ug/dL (37-170); Potassium 4.8 mmol/L (3.4-5.1); Sodium 131 mmol/L (137-145)
[2024-03-14 11:05] LABS: Transferrin 221 mg/dL (206-381)
[2024-03-14 11:11] LABS: HEMOLYSIS 33 (0-50); Percent Iron Saturation 65 % (15-50); Total Iron Binding Capacity 231 ug/dL (265-497)
[2024-03-14 11:33] LABS: Ferritin 249 ng/mL (11-264)
[2024-03-14 11:53] LABS: Neutrophils Absolute Manual 2214 /uL (3000-5900); RBC Morphology Normal Morphology; Total Cells Counted 100
== END ==
LOC: LAB 09:51
PROVIDERS: Family Provider Family Medicine; PCP Family Medicine; Referring Provider Family Medicine; Visit Provider Family Medicine
DX: N18.9 Chronic kidney disease, unspecified (principal); D64.9 Anemia, unspecified; I10 Essential (primary) hypertension
CPT/HCPCS: 36415; 80048; 82728; 83540; 83550; 85025

== ENCOUNTER → 2024-10-31 11:31 | Outpatient (CLI) | payer MEDICARE, SELFPAY | PROVIDERS: PCP Family Medicine; Visit Provider Family Medicine | DX: Z00.00 Encounter for general adult medical examination without abnormal findings (principal); I12.9 Hypertensive chronic kidney disease with stage 1 through stage 4 chronic kidney disease, or unspecified chronic kidney disease; N18.9 Chronic kidney disease, unspecified; R35.0 Frequency of micturition; G47.9 Sleep disorder, unspecified; Z78.9 Other specified health status | CPT/HCPCS: 87086 ==

== ENCOUNTER → 2024-10-31 12:09 | Outpatient (CLI) | payer MEDICARE, SELFPAY ==
[2024-10-31 13:26] LABS: BUN Creatinine Ratio 17.4 (6-22); Blood Urea Nitrogen 19 mg/dL (7-17); Calcium 10.2 mg/dL (8.4-10.2); Carbon Dioxide 19 mmol/L (22-32); Chloride 100 mmol/L (98-107); Cholesterol 251 mg/dL (140-199); Estimated Glomerular Filt Rate 52 mL/min (>60); Glucose 86 mg/dL (80-110); HEMOLYSIS < 15 (0-50); Potassium 4.8 mmol/L (3.4-5.1); Sodium 131 mmol/L (137-145); Triglycerides 116 mg/dL (35-150)
[2024-10-31 13:35] LABS: HDL Cholesterol 183 mg/dL (40-60); LDL Cholesterol Calculated 45 mg/dL (<100)
[2024-11-01 15:05] LABS: Hep C Virus Ab w/Reflex Quant NEGATIVE s/c (NEGATIVE)
== END ==
PROVIDERS: PCP Family Medicine; Referring Provider Family Medicine; Visit Provider Family Medicine
DX: Z00.00 Encounter for general adult medical examination without abnormal findings; N18.9 Chronic kidney disease, unspecified; I12.9 Hypertensive chronic kidney disease with stage 1 through stage 4 chronic kidney disease, or unspecified chronic kidney disease; R35.0 Frequency of micturition; G47.9 Sleep disorder, unspecified; Z78.9 Other specified health status
CPT/HCPCS: 36415; 80048; 80061; 86803; 87077; 87086; 87186